=== PATIENT | female | born 1945 | race Caucasian/White ===

== ENCOUNTER 2022-08-10 13:51 | Day surgery (SDC) | payer MEDICARE, OTHER, SELFPAY ==
--- NOTE | 2022-08-10 | PATH_ITS ---
[facility] Accession Number: [id number] No. of containers..02 Tissue . 01 Material submitted: . PART A: gastrointestinal site - GASTRIC BIOPSIES PART B: esophagus - ESOPHAGEAL BIOPSIES . 01 Clinical history: . A) R/O H. PYLORI . 01 Diagnosis: A. Stomach, Biopsies: Gastric antral mucosa with mild chronic inflammation. Negative for Helicobacter organisms by immunohistochemistry. Negative for intestinal metaplasia. Negative for dysplasia or malignancy. . B. Esophagus, Biopsies: Squamous epithelium with no diagnostic abnormality. Intraepithelial eosinophils are not increased. Negative for dysplasia and malignancy. MRV 08/16/2022 1506 Local . 01 Electronically signed: . Rodríguez Cadet MD, PhD, Pathologist NPI- [id number] . 01 Gross description: . Part A: GASTRIC BIOPSIES: Received in formalin are 2 fragment(s) of ta, soft tissue measuring 0.3 x 0.3 x 0.2 cm to 0.2 x 0.1 x 0.1 cm submitted entirely in 1 cassette(s) Part B: ESOPHAGEAL BIOPSIES: Received in formalin are multiple fragment(s) of ta, soft tissue measuring 0.5 x 0.3 x 0.1 cm in aggregate submitted entirely in 1 cassette(s) /CPE 08/11/2022 0710 Local . 01 Microscopic: . A. An immunohistochemical stain was performed to evaluate for Helicobacter organisms and is negative. The control stain showed appropriate reactivity. . * This test was developed and its performance characteristics determined by [facility]. It has not been cleared or approved by the U.[place]. Food and Drug Administration. The FDA has determined that such clearance or approval is not necessary. This test is used for clinical purposes. It should not be regarded as investigational or for research. . 01 Pathologist provided ICD-10: K21.9, K29.70 . 01 CPT . 282708, 485672, [id number] Specimen Comment: A courtesy copy of this report has been sent to [phone] Performed at: 01 [facility] [address] [place] [address], [place], [place] [id number] MD Franklyn Rene MD Phone: [phone]
[2022-08-10 14:11] VITALS: BMI 27.6
[2022-08-10 14:43] VITALS: BP 154/78; PULSE 54; RESP 16; TEMP 36.2; O2SAT 98
[2022-08-10] MEDS: LACTATED RINGERS 1,000 ML 42 ML IV (14:48)
--- NOTE | 2022-08-10 15:18 | PM.HP.1 ---
History of Present Illness History of Present Illness Date Patient Seen: 08/10/22 Chief complaint: EGD w/poss bx Narrative: Worsening GE reflux despite medications PFSH Surgical History (Updated 08/10/22 @ 14:41 by Vidhya Jones RN) History of abdominoplasty History of thyroidectomy Hx of breast reduction, elective Family History (Updated 08/10/22 @ 14:42 by Vidhya Jones RN) Grandfather Prostate cancer Father Heart disease Mother Heart disease Social History household members: spouse Smoking Status: Never smoker alcohol intake: current Meds Home Medications and Allergies Home Medications Medication Instructions Recorded Confirmed Type Arthritis Pain Relief (ASA) 81 mg PO DAILY 08/10/22 08/10/22 History Crestor 20 mg PO DAILY 08/10/22 08/10/22 History Zyrtec 10 mg PO PRN PRN prn 08/10/22 08/10/22 History amlodipine 5 mg tablet (Norvasc) 5 mg PO DAILY 08/10/22 08/10/22 History atenolol 50 mg tablet 50 mg PO DAILY 08/10/22 08/10/22 History cyclosporine 0.05 % eye drops in a 0.4 drp EYE-BOTH BID 08/10/22 08/10/22 History dropperette (Restasis) irbesartan 300 mg PO DAILY 08/10/22 08/10/22 History levothyroxine 112 mcg tablet 112 mcg PO DAILY 08/10/22 08/10/22 History (Synthroid) metoclopramide HCl 10 mg tablet 10 mg PO 4XD 08/10/22 08/10/22 History (Reglan) omeprazole 20 mg capsule,delayed 20 mg PO BID 08/10/22 08/10/22 History release Allergies Allergy/AdvReac Type Severity Reaction Status Date / Time morphine Allergy Severe Vomiting Verified 08/10/22 14:39 Exam Vital Signs (past 8 hours): - 08/10/22 14:43 Temperature 97.2 F L Pulse Rate 54 L Respiratory Rate 16 Blood Pressure 154/78 H Pulse Oximetry 98 Oxygen Delivery Method Room Air Oxygen Delivery Method Room Air Narrative Exam Narrative: Oropharynx free of lesions Chest clear to auscultation percussion Cardiac exam reveals no S3 or murmur Assessment & Plan Assessment & Plan narrative: Worsening GE reflux rule out esophagitis. Risks, benefits, alternatives have been explained.
--- NOTE | 2022-08-10 15:19 | PM.OP.EGD ---
Operative Date/Time/Diagnoses Date of procedure: 08/10/22 Pre-op diagnosis: See indication and findings Procedure & Clinicians Study performed: EGD Indications: Worsening GE reflux Surgeon: Roberto Carlos Marrero Procedure Notes Procedure in detail: After informed consent was obtained the patient was placed in left lateral decubitus position. The video upper scope was placed into the oropharynx and with the patient's help swallowed into the esophagus. The esophagus stomach and duodenum were carefully examined. On withdrawal, retroflexed view the GE junction was performed. The scope was removed. The patient tolerated the procedure well. Blood loss none Complications none Sedation mac Findings 1. Mid esophagus with subtle ring structures noted biopsies taken to rule out eosinophilic esophagitis 2. Distal esophagus was scattered yellow white plaques. All probable candidiasis. Biopsies taken and placed in bottle 1. 3. No GE junction esophagitis 4. Linear gastric erythema, biopsies taken to rule out Helicobacter 4. Normal duodenal bulb and sweep We will merely await biopsy results before suggesting therapy. I will be in touch with her in the next 1-2 weeks.
[2022-08-10 15:21] VITALS: BP 137/79; PULSE 55; RESP 18; TEMP 36.2; O2SAT 95
[2022-08-10 15:27] VITALS: BP 106/76; PULSE 56; RESP 13; O2SAT 93
[2022-08-10 15:31] VITALS: BP 119/70; PULSE 56; RESP 13; O2SAT 95
[2022-08-10 15:40] VITALS: BP 137/79; PULSE 55; RESP 14; O2SAT 96
[2022-08-10 15:41] VITALS: BP 133/78; PULSE 55; RESP 11; TEMP 36.4; O2SAT 96
== END 2022-08-10 16:15 | disposition home or self-care (01) ==
PROVIDERS: PCP Internal Medicine; Referring Provider Internal Medicine Gastroenterology; Visit Provider Internal Medicine Gastroenterology
PROC: 0DJ08ZZ Inspection of Upper Intestinal Tract, Via Natural or Artificial Opening Endoscopic (ICD-10-PCS; CPT 43235; principal; 2022-08-10 15:00)
DX: K21.9 Gastro-esophageal reflux disease without esophagitis (principal); K29.50 Unspecified chronic gastritis without bleeding
CPT/HCPCS: 43239; J2704